=== PATIENT | female | born 1970 | race Asian ===

== ENCOUNTER → 2017-01-23 | Outpatient (CLI) | payer BC, OTHER | LOC: FIMAGING 12:39 | PROVIDERS: ATTEND Family Medicine | DX: R19.00 Intra-abdominal and pelvic swelling, mass and lump, unspecified site (principal) ==

== ENCOUNTER → 2017-03-10 | Outpatient (CLI) | payer BC | LOC: FIMAGING 08:44 | PROVIDERS: ATTEND Family Medicine | DX: E88.2 Lipomatosis, not elsewhere classified (principal); M79.89 Other specified soft tissue disorders ==

== ENCOUNTER → 2017-06-14 | Outpatient (CLI) | payer BC | LOC: FIMAGING 15:11 | PROVIDERS: ATTEND Family Medicine | DX: Z12.31 Encounter for screening mammogram for malignant neoplasm of breast (principal) | CPT/HCPCS: G0202 ==

== ENCOUNTER → 2017-06-20 | Outpatient (CLI) | payer BC | LOC: FIMAGING 12:27 | PROVIDERS: ATTEND Family Medicine | DX: R92.8 Other abnormal and inconclusive findings on diagnostic imaging of breast (principal) ==

== ENCOUNTER → 2018-06-29 | Outpatient (CLI) | payer BC | LOC: FIMAGING 09:59 | PROVIDERS: ATTEND Family Medicine | DX: Z12.31 Encounter for screening mammogram for malignant neoplasm of breast (principal) ==